=== PATIENT | female | born 1995 | race Caucasian/White ===

== ENCOUNTER 2025-01-25 15:53 | Emergency (ER) | payer MEDICAID, SELFPAY ==
--- NOTE | 2025-01-25 15:56 | ED.GENADULT ---
HPI - General Adult General Chief complaint: Eye Problems Stated complaint: left eye reddened/painful Time Seen by Provider: 01/25/25 16:12 Source: patient, RN notes reviewed and old records reviewed Mode of arrival: ambulatory Limitations: no limitations History of Present Illness ED Provider: Tayo [facility] narrative: Patient is a 30-year-old female with no pmhx presenting to the ED from urgent care for evaluation of anisocoria. Patient reports left eye redness and irritation for the past two days. Reports this morning her eye was completely crusted shut. Mild itching, no pain. Denies any changes in vision. Does not wear contact lenses, wears glasses. Denies any prior history of anisocoria. Denies any known injury/trauma. MD complaint: eye irritation Onset (ago): day(s) Related Data Previous Rx's ?Medication ?Instructions ?Recorded polymyxin B sulfate 10,000 1 drp ophthalmic (eye) Q3H 7 days 01/25/25 unit-trimethoprim 1 mg/mL eye drops #10 mL Allergies Allergy/AdvReac Type Severity Reaction Status Date / Time No Known Allergies Allergy Verified 01/25/25 16:04 Review of Systems Review of Systems: as per hpi Yes all other systems are reviewed and are negative Constitutional: Constitutional: Reports as per HPI [facility] Social History Social History Advance Directives: No Advance Directives Information Provided: No Do you have a plan to hurt others: No Plan Physical Exam ED Vital Signs: Vital Signs - 24 hr 01/25/25 16:03 01/25/25 16:32 Temperature 98.0 F 98.0 F Pulse Rate 100 100 Respiratory Rate 16 16 Blood Pressure 144/79 H 144/79 H Pulse Oximetry 97 97 Oxygen Delivery Method Room Air Room Air BMI result Body Mass Index 46.6 Vital signs have been reviewed and appear to be correct. Blood pressure normal. Heart rate normal. Respiratory rate normal. Temperature normal. Oxygen saturation normal. Const General: cooperative, healthy appearing and no acute distress Orientation/consciousness: oriented to person, oriented to place, oriented to time and patient oriented x3 Limitations: no limitations HENMT Head: Yes normocephalic and Yes atraumatic Ears: external ears normal General nose exam: Normal external nose present Face and sinus: Yes face symmetric Mouth: oropharynx normal and moist mucous membranes Throat: Yes uvula midline Eyes Visual Ortega: normal visual ortega by confrontation Alignment and Position: alignment normal and position normal Periorbital: periorbital findings normal Eyelids: Yes eyelids normal and No lid lag Conjunctivae: conjunctival abnormal left conjunctival injection diffuse Corneas: corneas normal and fluorescein used Pupils: Pupils normal by confrontation, Pupils anisocoria right pupil size greater than left (left pupil 3mm, constricts and dilates; right pupil 5mm, constricts and dilates) and Other pupil findings (IOPs: OD 15, OS 9) EOM: EOMs intact bilaterally Neck Neck: Yes normal visual inspection and Yes supple Resp Effort & Inspection: normal respiratory effort and able to speak in complete sentences Auscultation: clear to auscultation bilaterally Cardio Rate: regular rate Rhythm: regular rhythm Heart sounds: S1 normal heart sound present and S2 normal heart sound present GI Palpation (GI): Soft to palpation and nontender Auscultation: normoactive bowel sounds General: Yes no CVA tenderness Back/Spine/Pelvis Back: no CVA tenderness Skin General skin exam: elasticity normal and turgor normal Neuro General: oriented to person, oriented to place, oriented to time, patient oriented x3, moves all extremities, no focal motor deficits and CN's II-XI intact bilaterally Cranial nerves: Yes CN's II-XII intact bilaterally Cognition (Neuro): normal cognition Extrem General: Yes full ROM, Yes no pedal edema and Yes no calf tenderness Psych Mental Status: mental status grossly normal Affect: normal affect Thought process: Normal thought process present Medical Decision Making Medical Decision Making MDM Narrative: Patient is a 30-year-old female with no pmhx presenting to the ED from urgent care for evaluation of anisocoria. On exam patient is awake, A+Ox3, VS WNL, afebrile, normal neurological exam without focal deficits, physical exam findings as above. Given reported symptoms and physical exam findings, initial differential includes but is not limited to conjunctivitis, episcleritis, corneal abrasion, foreign body. No corneal abrasion or foreign body noted on Wood's lamp exam with fluorescein stain. IOP is within normal limits bilaterally. Case discussed with attending, Dr. Zamudio, who does not feel emergent referral to package wrapper is indicated. Will treat for conjunctivitis with antibiotic drops and advised patient to follow up with her package wrapper within the next few days. Return precautions discussed. Patient verbalized understanding of and agreement with plan. Differential Diagnosis Differential Diagnoses: The differential diagnosis associated with the presentation includes as per [facility] Admission/Observation Consideration of admission/observation: Escalation of care including admission/observation considered Patient would have been admitted to the hospital had their clinical presentation warranted hospital admission. External Record Review External record reviewed: Inpatient record, Office record and Outpatient record Prescription Management I considered prescription management with: Antibiotic Discharge Plan Discharge Clinical Impression: Conjunctivitis Patient Disposition: Home, Self-Care Instructions: Conjunctivitis (ED) Additional Instructions: You were evaluated in the emergency department today for eye redness, itching, and unequal pupils. You are being treated for conjunctivitis with antibiotic eyedrops. Please complete the full course as prescribed. Be sure to wash hands thoroughly before and after touching your eyes. You should follow up with your package wrapper this week. Return to the emergency department if you develop changes in vision, increasing pain, fever 100.4F or greater, or any other concerning symptoms. Prescriptions: New polymyxin B sulf-trimethoprim 10,000 unit- 1 mg/mL drops 1 drp ophthalmic (eye) Q3H 7 Days Qty: 10 0RF Rx Instructions: while awake; do not exceed 6 doses in 24 hours Referrals: Cale Hahn [Physician, Ophthalmology] Clinical Impression: Conjunctivitis Interventions: ED Discharge Assessment Last Done: 01/25/25 16:32 Discharge Date/Time: 01/25/25 16:35 Print Language: Turkmen
[2025-01-25 16:03] VITALS: BP 144/79; PULSE 100; RESP 16; TEMP 36.7; O2SAT 97; BMI 46.6
[2025-01-25 16:32] VITALS: BP 144/79; PULSE 100; RESP 16; TEMP 36.7; O2SAT 97
--- OUTSIDE RECORDS SUMMARY | 2025-01-25 16:33 | XMS_ITS ---
Author Name [facility] Organization Unknown Care Team Organization Name Specialty Phone Email Start Date End Da te [facility] Dean [facility] 03/10/2023 01/24/20 [facility] RAN[facility] 02/11/2023 01/24/2024
--- OUTSIDE RECORDS SUMMARY | 2025-01-25 16:33 | XMS_ITS | Clinical Summary ---
Author Organization [facility] Address [address] [place] [address] Care Team Providers Care Geothermal Field Technician Name Role Phone Patient, Has No Pcp Or Ref Primary Care Provider Unavailable Allergies No known active allergies Medications No known medications Social History Tobacco Use Types Packs/Day Years Used Date Smoking Tobacco: Never Assessed Comments No Sex and Gender Information Value Date Recorded Sex Assigned at Not on file Legal Sex Female 9:51 PM EDT Gender Identity Not on file Sexual Orientation Not on file Last Filed Vital Signs Vital Sign Reading Time Taken Comments Blood Pressure 118/79 02/10/2023 1:11 PM EDT Pulse 81 02/10/2023 1:11 PM EDT Temperature 36.9 C (98.4 F) 02/10/2023 1:11 PM EDT Respiratory Rate 20 02/10/2023 1:11 PM EDT Oxygen Saturation 100% 02/10/2023 1:11 PM EDT Inhaled Oxygen Concentration - - Weight 83.9 kg (185 lb) 02/09/2023 10:05 PM EDT Height 167.6 cm (5' 6 ) 02/09/2023 10:05 PM EDT Body Mass Index 29.86 02/09/2023 10:05 PM EDT Plan of Treatment Health Maintenance Due Date Last Done Comments HIV Screening 1996 Pap Smear 1996 DTaP,Tdap,and Td Vaccines (7 - Td or Tdap) 03/29/2018 03/29/2008, 10/26/2000, 02/28/1998, Additional history exists COVID-19 Vaccine ( - 2023- season) 2024 Alcohol/Substance Use Screening 06/07/2024 Influenza Vaccine (#1) 2025 RSV Vaccine (60+ years old and patients) (1 - 1-dose 75+ series) 01/22/2071 Hepatitis B Vaccines Completed 1996, 1996, 1996 Varicella Vaccines Completed 03/29/2008, 02/28/1998 Pneumococcal Vaccine: Pediatric (0-5 Years) and At-Risk Patients (6-50 Years) Aged Out No longer eligible based on patient's age to complete this topic Insurance [employer] Care Teams Geothermal Field Technician Relationship Specialty Start Date End Date Patient, Has No Pcp Or Ref DO NOT EDIT THIS RECORD VIA PROVIDER ON THE FLY PCP - General [place] Hat Smearer 02/10/23
--- OUTSIDE RECORDS SUMMARY | 2025-01-25 16:33 | XMS_ITS | Clinical Summary ---
Author Organization [facility] Address [address] [place] [address] Care Team Providers Care Solo Musician Name Role Phone Agatha Pace MD Primary Care Provider [phone] Allergies No known active allergies Medications Medication Sig Dispensed Refills Start Date End Date Status nystatin-triamcinolo ne (MYCOLOG) ointment Apply to affected area BID for up to 14 days 30 g 0 11/11/2021 Active terconazole (TERAZOL 3) 0.8 % vaginal cream One applicatorful PV QHS x 3 nights 20 g 0 11/11/2021 Active norgestimate-ethinyl estradiol (ORTHO-CYCLEN) 0.25-35 MG-MCG per tabletIndications:Ge neral counseling for prescription of oral contraceptives Take 1 Tablet by mouth daily for 360 days. 84 Tablet 3 04/06/2022 Active Active Problems Problem Noted Date General counseling for prescription of o ral contraceptives 04/06/2022 Last Assessment & Plan: She was counseled re: the risks, benefits, and rates of amenorrhea. She was most interested in trying OCP. She was counseled on correct use and what to do if she misses a pill. She was encouraged to qucick start now at end of menses vs use back up barrier protection for 2 weeks prior to engaging in unprotected intercourse to avoid . She was encouraged to continue to use condoms to prevent STI. She was counseled re: most commonly expected SE including BTB when starting, breast tenderness, and headache. She was counseled re: risk of VTE and encouraged to call with signs or sx. Her history was reviewed and she has no contraindications to estrogen use. She will return for follow up in 3 months with AG and screening for STI. 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 Labia enlarged 12/22/2017 Weatherby-Schlatter's disease 09/18/2015 Immunizations Name Administration Dates Next Due DTP 1996 DTaP 10/26/2000,02/28/1998,01/25/1997 ,1996 HIB 06/28/1997,01/25/1997,1996 ,1996 Hepatitis B-3 Dose (<19yrs) 1996, 6,1996 MMR (Pzjcnja-Isngt-Jfblncb) 10/26/2000, 8 Meningococcal (Menactra) 09/29/2012,03/29/2008 Polio (OPV) 10/26/2000,01/25/1997,1996 ,1996 Tdap 03/29/2008 Varicella 03/29/2008,02/28/1998 Family History Medical History Relation Name Comments Hypertension Mother ovarian cysts CA Breast Negative Hx CA Colon Negative Hx CA Ovarian Negative Hx Cancer of Small Bowel Negative Hx Cancer of the Pancreas Negative Hx Cancer of the Renal Cell Negative Hx Uterine Cancer Negative Hx Relation Name Status Comments Father Alive Mother Alive Social History Tobacco Use Types Packs/Day Years Used Date Smoking Tobacco: Never Smokeless Tobacco: Never Alcohol Use Standard Drinks/Week Comments Yes 0 (1 standard drink = 0.6 oz pur e alcohol) occ. Sex Assigned at Date Recorded Not on file Job Start Date Occupation Industry Not on file Not on file Not on file Last Filed Vital Signs Vital Sign Reading Time Taken Comments Blood Pressure 112/64 04/06/2022 3:33 PM EDT Pulse 76 04/06/2022 3:33 PM EDT Temperature 36.7 C (98.1 F) 10/01/2021 5:28 PM EDT Respiratory Rate 16 04/06/2022 3:33 PM EDT Oxygen Saturation 99% 10/01/2021 5:28 PM EDT Inhaled Oxygen Concentration - - Weight 73.4 kg (161 lb 12.8 oz) 04/06/2022 3:33 PM EDT Height 167.6 cm (5' 6 ) 04/06/2022 3:33 PM EDT Body Mass Index 26.12 04/06/2022 3:33 PM EDT Plan of Treatment Health Maintenance Due Date Last Done Comments Covid-19 Vaccine (#1) 1996 DTAP/TDAP/TD (7 - Td or Tdap) 03/29/2018, 10/26/2000, 02/28/1998, Additional history exists BASELINE HEALTH EXAM 18-39 05/19/2021 05/19/2016, CHOLESTEROL SCREENING 05/19/2021 05/19/2016 CERVICAL CANCER SCREENING 06/26/20222021, 04/15/2018, 11/23/2017 BMI CHECK/ADVISE 06/07/2024 10/16/2019, , 05/14/2017, Additional history exists DEPRESSION SCREENING/FOLLOWUP 06/07/2024 SOCIAL NEEDS SCREENING 06/07/2024 INFLUENZA (#1) 2025 PNEUMOCOCCAL VACCINE FOR HIG H RISK PATIENTS (#1) 01/22/2061 Care Teams Solo Musician Relationship Specialty Start Date End Date Agatha Pace MD [address] [place] [id number] PCP - General Internal Medicine 08/28/15
== END 2025-01-25 16:35 | disposition home or self-care (01) ==
LOC: HO.ED 16:31
PROVIDERS: Emergency Provider Emergency Medicine; PCP Internal Medicine
DX: H10.89 Other conjunctivitis (principal)
CPT/HCPCS: 99282; 99283